=== PATIENT | female | born 2000 | race Two or more races ===

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

== ENCOUNTER 2023-07-04 19:49 | Emergency (ER) | payer MEDICAID, OTHER ==
[~2023-07-04] VITALS: Ht 167.6 cm; Wt 82.7 kg
[2023-07-04 20:58] LABS: Basophils # (auto) 0.2 10 ^3/uL (0-0.2); Basophils % (auto) 1.7 % (0.0-2.0); Eosinophils # (auto) 0.1 10 ^3/uL (0-0.8); Eosinophils % (auto) 0.7 % (0.0-7.0); Hemoglobin 14.1 g/dL (12.2-16.2); Lymphocytes # (auto) 3.3 10 ^3/uL (0.4-5.4); Lymphocytes % (auto) 32.7 % (10.0-50.0); Mean Corpuscular Hemoglobin 28.3 pg (28.0-32.0); Mean Corpuscular Hgb Conc. 32.9 g/dL (32.0-36.0); Mean Corpuscular Volume 86.2 fL (80.0-100.0); Monocytes # (auto) 0.7 10 ^3/uL (0-1.3); Monocytes % (auto) 6.8 % (0.0-12.0); Neutrophils # (auto) 5.8 10 ^3/uL (1.6-8.6); Neutrophils % (auto) 58.1 % (37.0-80.0); Red Blood Cells 4.99 10^6/uL (4.0-5.20); Red Cell Distribution Width 13.1 % (11.8-14.3)
[2023-07-04 21:03] LABS: Chloride 106 mmol/L (98-107); Potassium 3.8 mmol/L (3.5-5.1); Sodium 143 mmol/L (136-145)
[2023-07-04 21:04] LABS: Anion Gap 8 (5-15); Carbon Dioxide 29 mmol/L (20-30)
[2023-07-04 21:05] LABS: Calcium 9.1 mg/dL (8.7-10.4)
[2023-07-04 21:10] LABS: BUN/Creatinine Ratio 11.3 (10.0-20.0); Blood Urea Nitrogen 7 mg/dL (9-23); Glucose 89 mg/dL (74-106)
[2023-07-04 22:24] VITALS: BP 122/61; PULSE 84; RESP 18; TEMP 98.6; O2SAT 99
== END 2023-07-04 22:24 | disposition home or self-care (01) ==
LOC: ER 19:49
DX: R07.89 Other chest pain (principal)
CPT/HCPCS: 36415; 71046; 80048; 84484; 85025; 93005